=== PATIENT | male | born 1990 | race Caucasian/White ===

== ENCOUNTER 2017-01-15 03:48 | Emergency (ER) | payer MEDICAID ==
[~2017-01-15] VITALS: Ht 165.1 cm; Wt 100.0 kg
[2017-01-15] MEDS ORDERED: LIDOCAINE HCL 1% 20ML VIAL (Pyxis) INJ INFIL ONE (07:00)
[2017-01-15] MEDS ORDERED: BACITRACIN ZINC OINT UDPKT TOP ONE (07:00)
[2017-01-15] MEDS ORDERED: ACETAMINOPHEN 500MG TABLET PO ONE (07:00)
[2017-01-15 10:25] VITALS: BP 118/72
== END 2017-01-15 10:31 | disposition home or self-care (01) ==
LOC: ER 03:48
DX: S01.112A Laceration without foreign body of left eyelid and periocular area, initial encounter (principal); Y09 Assault by unspecified means; Y93.55 Activity, bike riding; Y92.89 Other specified places as the place of occurrence of the external cause; Y99.8 Other external cause status
CPT/HCPCS: 12011; 70486; 99284; J3490; Z7610

== ENCOUNTER 2017-01-24 17:40 | Emergency (ER) | payer MEDICAID ==
[~2017-01-24] VITALS: Ht 165.1 cm; Wt 113.5 kg
[2017-01-24 17:59] VITALS: BP 158/85
[2017-01-24] MEDS ORDERED: BACITRACIN ZINC OINT UDPKT TOP ONE (18:15)
== END 2017-01-24 18:17 | disposition home or self-care (01) ==
LOC: ER 17:49
DX: Z48.02 Encounter for removal of sutures (principal); R03.0 Elevated blood-pressure reading, without diagnosis of hypertension; Z87.01 Personal history of pneumonia (recurrent)
CPT/HCPCS: 99283